=== PATIENT | male | born 1950 | race Hispanic/Latino ===

== ENCOUNTER 2019-06-02 15:31 | Emergency (ER) | payer OTHER ==
--- NOTE | 2019-06-02 16:11 | RAD REPORT ---
EXAM DESCRIPTION: RAD - Chest Single View - 06/02/2019 4:04 pm CLINICAL HISTORY: wound infection Chest pain. COMPARISON: Chest Pa And Lat (2 Views) dated 10/28/2017; Chest Single View dated 10/28/2017 FINDINGS: Portable technique limits examination quality. The lungs are grossly clear. The heart is normal in size. No displaced fractures. IMPRESSION: No acute intrathoracic process suspected.
[2019-06-02] MEDS ORDERED: NA CHLORIDE 0.9% 2,000 ML ONE (16:23)
[2019-06-02 16:32] LABS: Absolute Lymphocytes (CBC) 0.8 K/uL (0.7-4.9); Basophils % 0.5 % (0-1.3); Hematocrit 46.6 % (39.6-49.0); Lymphocytes % 6.4 % (15.3-44.8); MPV 8.3 fL (7.6-11.3); RBC Red Blood Cell Count 5.25 M/uL (4.33-5.43)
[2019-06-02 16:36] LABS: Protime INR 1.13
--- NOTE | 2019-06-02 16:59 | RAD REPORT ---
EXAM DESCRIPTION: RAD - Foot Right 3 View - 06/02/2019 4:39 pm CLINICAL HISTORY: ecchymosis;Swelling COMPARISON: FOOT W OBLIQUES dated 02/28/2010; FOOT AP LAT dated 01/01/2010; Tib Fib Right dated 06/02/20 19 FINDINGS: Right tibia/fibula and right foot- multiple projections are submitted No fracture or dislocation evident. No radiographic finding of osteomyelitis. Prominent posterior and plantar calcaneal spurs evident.
[2019-06-02 17:00] LABS: ALT/SGPT 27 U/L (12-78); AST/SGOT 24 U/L (15-37); Albumin 3.8 g/dL (3.4-5.0); Alkaline Phosphatase 92 U/L (45-117); BUN Blood Urea Nitrogen 13 mg/dL (7-18); Bicarbonate 25 mmol/L (21-32); Bilirubin Direct 0.3 mg/dL (0-0.2); CKMB Creatine Kinase MB < 1.0 ng/mL (0.3-3.6); Creatine Phosphokinase 163 U/L (39-308); Glucose Level 110 mg/dL (74-106); Lipase 64 U/L (73-393); Potassium 3.7 mmol/L (3.5-5.1); Protein, Total 7.4 g/dL (6.4-8.2); Sodium Level 139 mmol/L (136-145); Troponin (Emerg Dept Use Only) < 0.02 ng/mL (0.0-0.045)
--- NOTE | 2019-06-02 17:02 | RAD REPORT ---
EXAM DESCRIPTION: US - Extremity Venous Uni Ltd - 06/02/2019 4:57 pm CLINICAL HISTORY: Swelling;Smash injury Leg swelling and edema. COMPARISON: No comparisons FINDINGS: Right lower extremity venous system was interrogated with Doppler technique. Normal flow, compressibility and augmentation was noted. There is no DVT present. IMPRESSION: No evidence of right lower extremity deep venous thrombosis.
--- NOTE | 2019-06-02 18:07 | ER ---
Nurse's Notes [facility] Name: Keith Lemos Age: 68 yrs Sex: Male : 1950 Arrival Date: 06/02/2019 Time: 15:33 Bed 20 Private MD: Diagnosis: Ecchymosis of lower right extremity post fall;Edema of right lower extremity Presentation: 06/02 15:37 Presenting complaint: Patient states: Sent by [place] for evaluation of gangrene to toes. Patient was seen on 05/25 for R leg pain and discoloration after driving to [place], but was told he did not have a DVT. Patient began running a fever last night and has worsening of discoloration to affected toes. Transition of care: patient was not received from another setting of care. Onset of symptoms was May 25, 2019. Risk Assessment: Do you want to hurt yourself or someone else? Patient reports no desire to harm self or others. Initial Sepsis Screen: Does the patient meet any 2 criteria? HR > 90 bpm. Does the patient have a suspected source of infection? Yes: Skin breakdown/wound. Care prior to arrival: None. 15:37 Method Of Arrival: Ambulatory ss 15:37 Acuity: DARSHAN 2 Triage Assessment: 15:45 General: Appears in no apparent distress. comfortable, ill, Behavior is calm, bp cooperative, appropriate for age. Pain: Complains of pain in right leg. EENT: No deficits noted. Neuro: No deficits noted. Cardiovascular: No deficits noted. Respiratory: No deficits noted. GI: No signs and/or symptoms were reported involving the gastrointestinal system. : No signs and/or symptoms were reported regarding the genitourinary system. Derm: Skin is dusky, R FOOT. Musculoskeletal: No deficits noted. Historical: - Allergies: 15:42 PENICILLINS; ss - PMHx: 15:42 CHF; Diabetes - IDDM; Hyperlipidemia; Hypertension; ss - PSHx: 15:42 Cholecystectomy; ss - Immunization history:: Adult Immunizations up to date. - Social history:: Smoking status: Patient/guardian denies using tobacco. - Ebola Screening: : Patient denies exposure to infectious person Patient denies travel to an Ebola-affected area in the 21 days before illness onset. Screenin:47 Abuse screen: Denies threats or abuse. Denies injuries from another. Nutritional bp screening: No deficits noted. Tuberculosis screening: No symptoms or risk factors identified. Fall Risk None identified. Assessment: 15:47 General: SEE TRIAGE NOTE. bp 17:00 Reassessment: B/S U/S COMPLETED, RESULTS PENDING. bp 18:45 Reassessment: PT D/C HOME AMBULATORY WITH FAMILY, DX WITH RLE ECCHYMOSIS AND EDEMA. bp Vital Signs: 15:42 BP 152 / 71; Pulse 107; Resp 20; Temp 99.7(O); Pulse Ox 93% on R/A; Weight 101.15 kg; ss Height 5 ft. 5 in. (165.10 cm); Pain 7/10; 17:00 BP 112 / 48; Pulse 87; Resp 15; Pulse Ox 95% ; bp 18:46 BP 110 / 51; Pulse 69; Resp 17; Temp 99.5; Pulse Ox 95% ; bp 15:42 Body Mass Index 37.11 (101.15 kg, 165.10 cm) ss ED Course: 15:33 Patient arrived in ED. as 15:42 Triage completed. ss 15:42 Arm band placed on right wrist. ss 15:44 Jody Bourne FNP-C is PHCP. snw 15:44 Kong Franco MD is Attending Physician. snw 15:44 Terry Robertson, REAGAN is Primary Nurse. bp 15:47 Patient has correct armband on for positive identification. Bed in low position. Call bp light in reach. Side rails up X2. Adult w/ patient. 16:04 X-ray completed. Portable x-ray completed in exam room. Patient tolerated procedure mh1 well. 16:10 Inserted saline lock: 20 gauge in right forearm, using aseptic technique. Blood bp collected. 16:11 Chest Single View XRAY In Process Unspecified. EDMS 16:42 Tib Fib Right XRAY In Process Unspecified. EDMS 16:42 Foot Right 3 View XRAY In Process Unspecified. EDMS 16:59 US Extremity Venous Unilateral Ltd In Process Unspecified. EDMS 18:45 No provider procedures requiring assistance completed. IV discontinued, intact, bp bleeding controlled, No redness/swelling at site. Pressure dressing applied. Ortho shoe applied to right foot. Administered Medications: 16:00 Drug: NS 0.9% (30 ml/kg) 30 ml/kg Route: IV; Rate: bolus; Site: right forearm; bp 18:48 Follow up: IV Status: Completed infusion; IV Intake: 3000ml bp Intake: 18:48 IV: 3000ml; Total: 3000ml. bp Outcome: 18:01 Discharge ordered by . keerthi 18:45 Discharged to home ambulatory, with family. bp 18:45 Condition: stable 18:45 Discharge instructions given to patient, Instructed on discharge instructions, follow up and referral plans. medication usage, Demonstrated understanding of instructions, follow-up care, medications, Prescriptions given X 1. 18:48 Patient left the ED. bp Signatures: Dispatcher [employer] EDMS Jody Bourne, WEBBING WEAVER-C WEBBING WEAVER-Csnw Renita Fong [facility] Bia Rwoley Shelby, REAGAN RN ss Terry Robertson RN RN bp
--- NOTE | 2019-06-02 18:08 | EDPHYS ---
Physician Documentation [facility] Name: Keith Lemos Age: 68 yrs Sex: Male : 1950 Arrival Date: 06/02/2019 Time: 15:33 Bed 20 Private MD: ED Physician Kong Franco HPI: 06/02 16:30 This 68 yrs old Male presents to ER via Ambulatory with complaints of Gangrene snw Toes, Knee Pain. 16:30 The patient presents with pain, that is acute, swelling. The complaints affect the snw right knee. 16:32 Context: The problem was sustained at home, resulted from pt had driven home from [facility]. Pt fell and hurt knee on Friday pm. [facility] and leg was [facility]ed and DVT study was performed with negative results. Right foot and toes more discolored today and pt was sent for evaluation. Onset: The symptoms/episode began/occurred gradually. Associated signs and symptoms: Pertinent positives: knee pain and low grade fever today. Severity of symptoms: At their worst the symptoms were mild. It is unknown whether or not the patient has had similar symptoms in the past. as noted. Historical: - Allergies: 15:42 PENICILLINS; ss - PMHx: 15:42 CHF; Diabetes - IDDM; Hyperlipidemia; Hypertension; ss - PSHx: 15:42 Cholecystectomy; ss - Immunization history:: Adult Immunizations up to date. - Social history:: Smoking status: Patient/guardian denies using tobacco. - Ebola Screening: : Patient denies exposure to infectious person Patient denies travel to an Ebola-affected area in the 21 days before illness onset. ROS: 16:18 Constitutional: Negative for fever, chills, and weight loss, Eyes: Negative for injury, snw pain, redness, and discharge, ENT: Negative for injury, pain, and discharge, Neck: Negative for injury, pain, and swelling, Cardiovascular: Negative for chest pain, palpitations, and edema, Respiratory: Negative for shortness of breath, cough, wheezing, and pleuritic chest pain, Abdomen/GI: Negative for abdominal pain, nausea, vomiting, diarrhea, and constipation, Back: Negative for injury and pain, : Negative for injury, bleeding, discharge, and swelling, Skin: Negative for injury, rash, and discoloration, Neuro: Negative for headache, weakness, numbness, tingling, and seizure. 16:18 MS/extremity: Positive for injury or acute deformity, sent by [place] clinic to [facility] for gangrene. Exam: 16:17 Constitutional: This is a well developed, well nourished patient who is awake, alert, snw and in no acute distress. Head/Face: Normocephalic, atraumatic. Eyes: Pupils equal round and reactive to light, extra-ocular motions intact. Lids and lashes normal. Conjunctiva and sclera are non-icteric and not injected. Cornea within normal limits. Periorbital areas with no swelling, redness, or edema. ENT: Nares patent. No nasal discharge, no septal abnormalities noted. Tympanic membranes are normal and external auditory canals are clear. Oropharynx with no redness, swelling, or masses, exudates, or evidence of obstruction, uvula midline. Mucous membranes moist. Neck: Trachea midline, no thyromegaly or masses palpated, and no cervical lymphadenopathy. Supple, full range of motion without nuchal rigidity, or vertebral point tenderness. No Meningismus. Chest/axilla: Normal chest wall appearance and motion. Nontender with no deformity. No lesions are appreciated. Cardiovascular: Regular rate and rhythm with a normal S1 and S2. No gallops, murmurs, or rubs. Normal PMI, no JVD. No pulse deficits. Respiratory: Lungs have equal breath sounds bilaterally, clear to auscultation and percussion. No rales, rhonchi or wheezes noted. No increased work of breathing, no retractions or nasal flaring. Abdomen/GI: Soft, non-tender, with normal bowel sounds. No distension or tympany. No guarding or rebound. No evidence of tenderness throughout. Back: No spinal tenderness. No costovertebral tenderness. Full range of motion. Neuro: Awake and alert, GCS 15, oriented to person, place, time, and situation. Cranial nerves II-XII grossly intact. Motor strength 5/5 in all extremities. Sensory grossly intact. Cerebellar exam normal. Normal gait. Psych: Awake, alert, with orientation to person, place and time. Behavior, mood, and affect are within normal limits. 16:17 Skin: Appearance: normal except for affected area, injury, contusion(s), that are deep, of the lateral aspect of right foot and medial aspect of right foot. Vital Signs: 15:42 BP 152 / 71; Pulse 107; Resp 20; Temp 99.7(O); Pulse Ox 93% on R/A; Weight 101.15 kg; ss Height 5 ft. 5 in. (165.10 cm); Pain 7/10; 17:00 BP 112 / 48; Pulse 87; Resp 15; Pulse Ox 95% ; bp 18:46 BP 110 / 51; Pulse 69; Resp 17; Temp 99.5; Pulse Ox 95% ; bp 15:42 Body Mass Index 37.11 (101.15 kg, 165.10 cm) ss MDM: 15:49 Patient medically screened. snw 18:07 Data reviewed: vital signs, nurses notes. Data interpreted: Pulse oximetry: on room air snw is 95 %. Interpretation: acceptable. Counseling: I had a detailed discussion with the patient and/or guardian regarding: the historical points, exam findings, and any diagnostic results supporting the discharge/admit diagnosis, lab results, radiology results, the need for outpatient follow up, to return to the emergency department if symptoms worsen or persist or if there are any questions or concerns that arise at home. Special discussion: Based on the history and exam findings, there is no indication for further emergent testing or inpatient evaluation. I discussed with the patient/guardian the need to see the orthopedic surgeon for further evaluation of the symptoms. I discussed with the patient/guardian the need to see the primary care provider for further evaluation of the symptoms. 06/02 15:47 Order name: T\T\S; Complete Time: 17:02 snw 06/02 15:47 Order name: C-Reactive Protein; Complete Time: 17:23 snw 06/02 15:47 Order name: Basic Metabolic Panel; Complete Time: 17:23 snw 06/02 15:47 Order name: Blood Culture Adult (2) snw 06/02 15:47 Order name: CBC with Diff; Complete Time: 16:36 snw 06/02 15:47 Order name: Ckmb; Complete Time: 17:23 snw 06/02 15:47 Order name: CPK; Complete Time: 17:23 snw 06/02 15:47 Order name: Lactate; Complete Time: 16:52 snw 06/02 15:47 Order name: LFT's; Complete Time: 17:23 snw 06/02 15:47 Order name: Lipase; Complete Time: 17:23 snw 06/02 15:47 Order name: Procalcitonin; Complete Time: 17:23 snw 06/02 15:47 Order name: Protime (+inr); Complete Time: 16:43 snw 06/02 15:47 Order name: Ptt, Activated; Complete Time: 16:43 snw 06/02 15:47 Order name: Troponin (emerg Dept Use Only); Complete Time: 17:23 snw 06/02 15:47 Order name: Chest Single View XRAY; Complete Time: 16:28 snw 06/02 15:47 Order name: Accucheck; Complete Time: 16:15 snw 06/02 15:47 Order name: Cardiac monitoring; Complete Time: 15:59 snw 06/02 15:47 Order name: EKG - Nurse/Tech; Complete Time: 16:15 snw 06/02 15:47 Order name: IV Saline Lock - Large Bore; Complete Time: 16:16 snw 06/02 15:47 Order name: Labs collected and sent; Complete Time: 16:16 snw 06/02 15:47 Order name: O2 Per Protocol; Complete Time: 15:59 snw 06/02 15:47 Order name: O2 Sat Monitoring; Complete Time: 15:59 snw 06/02 16:08 Order name: Tib Fib Right XRAY snw 06/02 16:08 Order name: Foot Right 3 View XRAY; Complete Time: 17:03 snw 06/02 16:08 Order name: US Extremity Venous Unilateral Ltd; Complete Time: 17:12 snw 06/02 17:41 Order name: EKG Electrocardiogram; Complete Time: 17:45 EDMS 06/02 17:59 Order name: Walking boot; Complete Time: 18:47 snw Administered Medications: 16:00 Drug: NS 0.9% (30 ml/kg) 30 ml/kg Route: IV; Rate: bolus; Site: right forearm; bp 18:48 Follow up: IV Status: Completed infusion; IV Intake: 3000ml bp Disposition: 06/02/19 18:01 Discharged to Home. Impression: Ecchymosis of lower right extremity post fall, Edema of right lower extremity. - Condition is Stable. - Discharge Instructions: Muscle Strain, Walking Boot, Peripheral Edema. - Prescriptions for Ultram 50 mg Oral Tablet - take 1 tablet by ORAL route every 6 hours As needed; 12 tablet. - Medication Reconciliation Form, Thank You Letter, Antibiotic Education, Prescription Opioid Use, Family Work Release form. - Follow up: Private Physician; When: 1 - 2 days; Reason: Recheck today's complaints, Continuance of care, Re-evaluation by your physician. Follow up: Emergency Department; When: As needed; Reason: Worsening of condition. Addendum: 06/07/2019 09:43 Co-signature as Attending Physician, Kong Franco MD I agree with the assessment and k dr plan of care. Signatures: Dispatcher [employer] EDMS Kong Franco MD MD [facility] Jody Bourne, AEROTRIANGULATION SPECIALIST-C AEROTRIANGULATION SPECIALIST-Csnw Jhoana Foreman, REAGAN RN ss Terry Robertson RN RN bp Corrections: (The following items were deleted from the chart) 06/02 18:48 18:01 06/02/2019 18:01 Discharged to Home. Impression: Ecchymosis of lower right bp extremity post fall; Edema of right lower extremity. Condition is Stable. Forms are Medication Reconciliation Form, Thank You Letter, Antibiotic Education, Prescription Opioid Use. Follow up: Private Physician; When: 1 - 2 days; Reason: Recheck today's complaints, Continuance of care, Re-evaluation by your physician. Follow up: Emergency Department; When: As needed; Reason: Worsening of condition. snw
[2019-06-02 20:41] VITALS: O2SAT 95
[2019-06-02 20:43] VITALS: BP 110/51; TEMP 99.5
--- NOTE | 2019-06-03 11:10 | EKG ---
Test Date: 2019-06-02 Test Time: 16:10:33 Mill Attendant: SÁNCHEZ MEASUREMENT RESULTS: Intervals: Rate: 99 OK: 152 QRSD: 90 QT: 358 QTc: 459 [place]: P: 57 OK: 152 QRS: 240 T: 46 INTERPRETIVE STATEMENTS: Normal sinus rhythm Right superior axis deviation Inferior infarct, age undetermined Abnormal ECG Compared to ECG 10/28/2017 16:01:17 Right superior axis now present Ventricular premature complex(es) no longer present Left-axis deviation no longer present Myocardial infarct finding still present Electronically Signed On 06-03-19 11:06:28 CDT by Luis Valle
--- NOTE | 2019-06-04 11:07 | RAD REPORT ---
EXAM DESCRIPTION: RAD - Tib Fib Right - 06/02/2019 4:39 pm CLINICAL HISTORY: Ecchymosis;Swelling COMPARISON: FOOT W OBLIQUES dated 02/28/2010; FOOT AP LAT dated 01/01/2010; Tib Fib Right dated 06/02/20 19 FINDINGS: Right tibia/fibula and right foot- multiple projections are submitted No fracture or dislocation evident. No radiographic finding of osteomyelitis. Prominent posterior and plantar calcaneal spurs evident.
== END 2019-06-02 18:48 | disposition home or self-care (01) ==
LOC: ER 15:31
DX: S80.11XA Contusion of right lower leg, initial encounter (principal); R60.0 Localized edema; W19.XXXA Unspecified fall, initial encounter; Y93.89 Activity, other specified; Y92.009 Unspecified place in unspecified non-institutional (private) residence as the place of occurrence of the external cause; Z88.0 Allergy status to penicillin; I10 Essential (primary) hypertension
CPT/HCPCS: 96361; 93005; 87040 ×2; 85025; 80048; 36415; 86900; 86850; 82550; 85610; 86901; 80076; 83605; 85730; 84484; 82553; 83690; 84145; 86140; 71045; 73630; 73590; 93971; 96360; 99284; J7030; 96365; 96366

== ENCOUNTER 2022-09-08 11:26 | Emergency (ER) | payer OTHER ==
--- OUTSIDE RECORDS SUMMARY | 2022-09-08 11:29 | XMS REPORT | Continuity of Care Document ---
:1950 Author Organization [facility] t Address [address] [place] [address] [address]. [address] [place] [address] Care Team Providers Name Role Phone Unavailable Unavailable Unavailable Problems This patient has no known problems. Allergies, Adverse Reactions, Alerts This patient has no known allergies or adverse reactions. Medications This patient has no known medications. Procedures This patient has no known procedures. Results This patient has no known results.
[2022-09-08 11:53] LABS: Urine Blood 2+ (Negative); Urine Glucose Trace (Negative); Urine Protein Negative (Negative); Urine pH 5.5 (5.0-7.0)
--- NOTE | 2022-09-08 13:03 | EDPHYS ---
Physician Documentation [facility] Name: Keith Lemos Age: 71 yrs Sex: Male : 1950 Arrival Date: 09/08/2022 Time: 11:29 Bed 20 Private MD: ED Physician Julio Gan HPI: 09/08 11:40 This 71 yrs old Male presents to ER via Ambulatory with complaints of Urinary jmm Retention. 11:40 Onset: The symptoms/episode began/occurred gradually, last night. Modifying factors: jmm The symptoms are alleviated by nothing, the symptoms are aggravated by nothing. This is a 71 year old male with a history of chf, dm, hlp, htn that presents to the ED with complaints of difficulty urinating. Patient has not been able to urinate since last night. Denies fever, abdominal pain, vomiting. . Historical: - Allergies: 11:38 PENICILLINS; ll1 - PMHx: 11:38 CHF; Diabetes - IDDM; Hyperlipidemia; Hypertension; ll1 - PSHx: 11:38 Cholecystectomy; ll1 - Immunization history:: Client reports receiving the 2nd dose of the Covid vaccine. - Social history:: Smoking status: Patient denies any tobacco usage or history of. ROS: 11:40 Constitutional: Negative for fever, chills, and weight loss, Eyes: Negative for injury, jmm pain, redness, and discharge, ENT: Negative for injury, pain, and discharge, Neck: Negative for injury, pain, and swelling, Cardiovascular: Negative for chest pain, palpitations, and edema, Respiratory: Negative for shortness of breath, cough, wheezing, and pleuritic chest pain, Abdomen/GI: Negative for abdominal pain, nausea, vomiting, diarrhea, and constipation, Back: Negative for injury and pain, MS/Extremity: Negative for injury and deformity, Skin: Negative for injury, rash, and discoloration, Neuro: Negative for headache, weakness, numbness, tingling, and seizure, Psych: Negative for depression, anxiety, suicide ideation, homicidal ideation, and hallucinations. 11:40 All other systems are negative. Exam: 11:40 Constitutional: This is a well developed, well nourished patient who is awake, alert, jmm and in no acute distress. Head/Face: atraumatic. Eyes: EOMI, no conjunctival erythema appreciated ENT: Moist Mucus Membranes Neck: Trachea midline, Supple Chest/axilla: Normal chest wall appearance and motion. Cardiovascular: Regular rate and rhythm. No edema appreciated Respiratory: Normal respirations, no respiratory distress appreciated Abdomen/GI: Non distended Back: Normal ROM Skin: General appearance color normal MS/ Extremity: Moves all extremities, no obvious deformities appreciated, no edema noted to the lower extremities Neuro: Awake and alert Psych: Behavior is normal, Mood is normal, Patient is cooperative and pleasant Vital Signs: 11:38 BP 182 / 91; Pulse 67; Resp 20; Temp 97.9; Pulse Ox 96% ; Weight 96.16 kg; Height 5 ft. ll1 5 in. (165.10 cm); Pain 10/10; 11:45 Resp 18; Pain 6/10; ll1 12:00 BP 165 / 56; Pulse 66; Resp 17; ll1 13:00 BP 145 / 62; Pulse 65; Resp 18; Pulse Ox 99% ; kb3 11:38 Body Mass Index 35.28 (96.16 kg, 165.10 cm) ll1 MDM: 11:40 Patient medically screened. [facility] 13:01 Data reviewed: vital signs, nurses notes. Counseling: I had a detailed discussion with ernesto the patient and/or guardian regarding: the historical points, exam findings, and any diagnostic results supporting the discharge/admit diagnosis, lab results, the need for outpatient follow up, to return to the emergency department if symptoms worsen or persist or if there are any questions or concerns that arise at home. 09/08 11:53 Order name: Urine Dipstick-Ancillary; Complete Time: 11:56 EDMS Administered Medications: No medications were administered Disposition Summary: 09/08/22 13:02 Discharge Ordered Location: Home [facility] Condition: Stable baljeet Diagnosis - Urinary Retention [facility] Followup: baljeet - With: Ambrocio Garcia MD - When: 2 - 3 days - Reason: Recheck today's complaints, Continuance of care, Re-evaluation by your physician Discharge Instructions: - Discharge Summary Sheet [facility] - Acute Urinary Retention, Male [facility] Forms: - Medication Reconciliation Form [facility] - Thank You Letter baljeet - Antibiotic Education baljeet - Prescription Opioid Use baljeet Signatures: Dany Rockwell PA PA jmm Lewis, Lynsay RN RN ll1
--- NOTE | 2022-09-08 13:03 | ER ---
Nurse's Notes [facility] Name: Keith Lemos Age: 71 yrs Sex: Male : 1950 Arrival Date: 09/08/2022 Time: 11:29 Bed 20 Private MD: Diagnosis: Urinary Retention Presentation: 09/08 11:38 Chief complaint: Patient states: Cant urinate since 5 am. Coronavirus screen: Vaccine ll1 status: Patient reports receiving the 2nd dose of the covid vaccine. Client denies travel out of the [place] in the last 14 days. At this time, the client does not indicate any symptoms associated with coronavirus-19. Ebola Screen: Patient denies travel to an Ebola-affected area in the 21 days before illness onset. Initial Sepsis Screen: Does the patient meet any 2 criteria? No. Patient's initial sepsis screen is negative. Does the patient have a suspected source of infection? Yes: Dysuria/Frequency/Urgency/UTI. Risk Assessment: Do you want to hurt yourself or someone else? Patient reports no desire to harm self or others. Onset of symptoms was September 08, 2022. 11:38 Method Of Arrival: Ambulatory ll1 11:38 Acuity: DARSHAN 2 ll1 Triage Assessment: 11:40 General: Appears uncomfortable, Behavior is cooperative, appropriate for age, restless. ll1 Pain: Complains of pain in pelvis Pain currently is 10 out of 10 on a pain scale. Quality of pain is described as pressure, throbbing, Pain began 5 am. Neuro: No deficits noted. Cardiovascular: No deficits noted. : Reports burning with urination, inability to void, since 5 AM pain in bilateral lower quadrant(s) with urination. Historical: - Allergies: 11:38 PENICILLINS; ll1 - PMHx: 11:38 CHF; Diabetes - IDDM; Hyperlipidemia; Hypertension; ll1 - PSHx: 11:38 Cholecystectomy; ll1 - Immunization history:: Client reports receiving the 2nd dose of the Covid vaccine. - Social history:: Smoking status: Patient denies any tobacco usage or history of. Screenin:54 [facility] ED Fall Risk Assessment (Adult) Altered Elimination Yes (1 pt) Score/Fall Risk ll1 Level 0 - 2 = Low Risk Oriented to surroundings, Maintained a safe environment, Educated pt \T\ family on fall prevention, incl call for assistance when getting out of bed, Hourly rounding (assess needs \T\ fall precautionary measures) done. Abuse screen: Denies threats or abuse. Nutritional screening: No deficits noted. Tuberculosis screening: No symptoms or risk factors identified. Assessment: 12:00 Reassessment: No changes from previously documented assessment. Patient and/or family ll1 updated on plan of care and expected duration. Pain level reassessed. Patient is alert, oriented x 3, equal unlabored respirations, skin warm/dry/pink. 13:12 General: Urinary catheter remains in place, bag replaced with leg bag for discharge. kb3 Education provided regarding care of catheter. Vital Signs: 11:38 BP 182 / 91; Pulse 67; Resp 20; Temp 97.9; Pulse Ox 96% ; Weight 96.16 kg; Height 5 ft. ll1 5 in. (165.10 cm); Pain 10/10; 11:45 Resp 18; Pain 6/10; ll1 12:00 BP 165 / 56; Pulse 66; Resp 17; ll1 13:00 BP 145 / 62; Pulse 65; Resp 18; Pulse Ox 99% ; kb3 11:38 Body Mass Index 35.28 (96.16 kg, 165.10 cm) ll1 ED Course: 11:29 Patient arrived in ED. as 11:30 Arm band placed on Patient placed in an exam room, on a stretcher. 1 11:38 Jin Whitney RN is Primary Nurse. 1 11:38 Dany Rockwell PA is PHCP. [facility] 11:38 Julio Gan MD is Attending Physician. [facility] 11:39 Triage completed. 1 11:40 Notified Nurse Practitioner and/or Physician Insole Bottom Filler of patient needs denis KIM. ll1 Given verbal order to do so. 11:42 Denis cath inserted, using sterile technique, 16 Fr., by co, balloon inflated, to ll1 gravity drainage, clamped. urine specimen collected. 12:01 Patient has correct armband on for positive identification. Bed in low position. Call ll1 light in reach. Side rails up X 1. Client placed on continuous cardiac and pulse oximetry monitoring. NIBP monitoring applied. 13:01 Ambrocio Garcia MD is Referral Physician. [facility] 13:02 Primary Nurse role handed off by Jin Whitney RN eb 13:12 Niya Curry, RN is Primary Nurse. kb3 13:12 No provider procedures requiring assistance completed. Patient did not have IV access kb3 during this emergency room visit. Administered Medications: No medications were administered Medication: 12:01 VIS not applicable for this client. ll1 Output: 12:00 Urine: 800ml (Denis); Total: 800ml. ll1 Outcome: 13:02 Discharge ordered by MD. orozco 13:17 Discharged to home ambulatory, with family. kb3 13:17 Condition: stable 13:17 Discharge instructions given to patient, family, Instructed on discharge instructions, follow up and referral plans. medication usage, urinary catheter care Demonstrated understanding of instructions, follow-up care, medications. 13:18 Patient left the ED. kb3 Signatures: Dany Rockwell PA PA jmm Martinez, Amelia as Botello, Elizabeth eb Lewis, Lynsay, RN RN ll1 Niya Curry, RN RN kb3
[2022-09-08 13:23] VITALS: TEMP 97.9
[2022-09-08 13:26] VITALS: BP 145/62; O2SAT 99
== END 2022-09-08 13:18 | disposition home or self-care (01) ==
LOC: ER 11:26
DX: R33.9 Retention of urine, unspecified (principal); I10 Essential (primary) hypertension; Z88.0 Allergy status to penicillin
CPT/HCPCS: 51702; 81003; 99284

== ENCOUNTER 2022-09-12 18:55 | Emergency (ER) | payer OTHER ==
--- OUTSIDE RECORDS SUMMARY | 2022-09-12 18:58 | XMS REPORT | Continuity of Care Document ---
:1950 Author Organization [facility] t Address [address] [place] [address] [address] [place] [address] Care Team Providers Name Role Phone Unavailable Unavailable Unavailable Problems This patient has no known problems. Allergies, Adverse Reactions, Alerts This patient has no known allergies or adverse reactions. Medications This patient has no known medications. Procedures This patient has no known procedures. Results This patient has no known results.
[2022-09-12 22:45] LABS: Urine Blood 3+ (Negative); Urine Glucose Negative (Negative); Urine Protein 1+ (Negative); Urine Specific Gravity 1.015 (1.005-1.030)
[2022-09-12 23:14] LABS: Urine Bacteria <20 /HPF (<20); Urine Mucus Slight /HPF (None Seen); Urine RBC >50 /HPF (None Seen)
--- NOTE | 2022-09-12 23:16 | ER ---
Nurse's Notes [facility] Name: Keith Lemos Age: 71 yrs Sex: Male : 1950 Arrival Date: 09/12/2022 Time: 18:58 Bed 12 Private MD: Diagnosis: Leakage of urinary (indwelling) catheter;Urinary retention Presentation: 09/12 19:05 Chief complaint: Denis catheter inserted 4 days ago, reports leaking urine from penis hb started last night. Coronavirus screen: At this time, the client does not indicate any symptoms associated with coronavirus-19. Ebola Screen: No symptoms or risks identified at this time. Risk Assessment: Do you want to hurt yourself or someone else? Patient reports no desire to harm self or others. Onset of symptoms was September 12, 2022. 19:05 Method Of Arrival: Ambulatory hb 19:05 Acuity: DARSHAN 3 hb 23:44 Initial Sepsis Screen: Does the patient meet any 2 criteria? No. Patient's initial pf1 sepsis screen is negative. Does the patient have a suspected source of infection? No. Patient's initial sepsis screen is negative. Historical: - Allergies: 19:06 PENICILLINS; hb - PMHx: 19:06 CHF; Diabetes - IDDM; Hyperlipidemia; Hypertension; hb - PSHx: 19:06 Cholecystectomy; hb - Immunization history:: Adult Immunizations unknown. - Social history:: Smoking status: Patient/guardian denies using. Screenin:32 [facility] ED Fall Risk Assessment (Adult) History of falling in the last 3 months, pf1 including since admission No falls in past 3 months (0 pts) Confusion or Disorientation No (0 pts) Intoxicated or Sedated No (0 pts) Impaired Gait No (0 pts) Mobility Assist Device Used No (0 pt) Altered Elimination No (0 pt) Score/Fall Risk Level 0 - 2 = Low Risk Oriented to surroundings, Maintained a safe environment, Educated pt \T\ family on fall prevention, incl call for assistance when getting out of bed, Assessed \T\ reinforced patient's understanding of fall precautions, Provided non-skid footwear, Hourly rounding (assess needs \T\ fall precautionary measures) done, Used ambulatory aids as needed (educated on \T\ assisted with), Used gait belt as appropriate. Abuse screen: Denies threats or abuse. Nutritional screening: No deficits noted. Tuberculosis screening: No symptoms or risk factors identified. Assessment: 19:20 General: Appears in no apparent distress. comfortable, well groomed, well developed, pf1 Behavior is calm, cooperative, appropriate for age, quiet. 19:20 Pain: Complains of pain in Patient C/O tip of the penis pain of 2, due to irritation pf1 from denis. Pain currently is 2 out of 10 on a pain scale. Neuro: No deficits noted. Level of Consciousness is awake, alert, obeys commands, Oriented to person, place, time, situation. Cardiovascular: No deficits noted. Respiratory: No deficits noted. Airway is patent Respiratory effort is even, unlabored, Respiratory pattern is regular, symmetrical. GI: No deficits noted. No signs and/or symptoms were reported involving the gastrointestinal system. Abdomen is round non-distended, Bowel sounds present X 4 quads. Abd is soft and non tender X 4 quads. : Reports Patient C/O urinating around denis catheter,onset today, Patient stated denis catheter was inserted here on Friday. Patient stated followed up with [facility] on Friday and awaiting for an appointment with Urology from [place]. EENT: No deficits noted. No signs and/or symptoms were reported regarding the EENT system. 20:40 General: Patient drinking water at this time to attempt to urinate. pf1 22:00 General: Patient had a total of 237ml of urine per bladder scan. pf1 22:41 General: Patient urine output of 380 with urinal. pf1 23:24 Reassessment: Patient appears in no apparent distress at this time. Patient and/or hb family updated on plan of care and expected duration. Pain level reassessed. Patient is alert, oriented x 3, equal unlabored respirations, skin warm/dry/pink. Vital Signs: 19:05 BP 145 / 57; Pulse 69; Resp 16; Temp 98.3; Pulse Ox 100% on R/A; Weight 97.52 kg; hb Height 5 ft. 5 in. (165.10 cm); Pain 1/10; 19:40 BP 151 / 65; Pulse 65; Resp 18; Temp 97.9; Pulse Ox 96% on R/A; Pain 2/10; pf1 21:30 BP 144 / 54; Pulse 69; Resp 18; Pulse Ox 100% ; Pain 2/10; pf1 22:30 BP 151 / 58; Pulse 70; Resp 16; Temp 98; Pulse Ox 99% ; Pain 2/10; pf1 23:24 BP 146 / 76; Pulse 64; Resp 16; Pulse Ox 99% on R/A; hb 19:05 Body Mass Index 35.78 (97.52 kg, 165.10 cm) hb ED Course: 18:58 Patient arrived in ED. jj6 19:06 Triage completed. hb 19:06 Arm band placed on. hb 19:07 Mireya Akbar MD is Attending Physician. sd2 19:27 Zonia cobb RN is Primary Nurse. pf1 19:30 Patient has correct armband on for positive identification. Placed in gown. Bed in low pf1 position. Call light in reach. 19:33 No provider procedures requiring assistance completed. pf1 19:42 Patient has a 16 macedonian denis catheter placed TREE SAPPER that was inserted here on Friday due pf1 to urinary retention. 20:10 Denis cath removed intact, balloon deflated, Patient tolerated well. pf1 23:06 Urine Microscopic Only Sent. pf1 23:15 Ambrocio Garcia MD is Referral Physician. sd2 23:44 Patient did not have IV access during this emergency room visit. pf1 Administered Medications: No medications were administered Medication: 19:30 VIS not applicable for this client. pf1 Intake: 20:30 PO: 1260ml (Water); Total: 1260ml. pf1 23:24 PO: 0ml; Total: 1260ml. hb Output: 19:40 Urine: 50ml (Voided); Total: 50ml. pf1 20:30 Urine: 480ml (Voided); Total: 530ml. pf1 23:24 Urine: 300ml (Voided); Total: 830ml. hb Outcome: 23:16 Discharge ordered by . sd2 23:25 Discharged to home ambulatory. hb 23:25 Condition: stable 23:25 Discharge instructions given to patient, significant other, Instructed on discharge instructions, follow up and referral plans. medication usage, Demonstrated understanding of instructions, follow-up care, medications. 23:25 Patient left the ED. hb Signatures: Myrtle Mcintosh RN RN Ally Knapp jj6 Mireya Akbar MD MD sd2 Zonia cobb RN RN pf1 Corrections: (The following items were deleted from the chart) 19:07 19:05 Acuity: DARSHAN 4 hb hb
--- NOTE | 2022-09-12 23:17 | EDPHYS ---
Physician Documentation [facility] Name: Keith Lemos Age: 71 yrs Sex: Male : 1950 Arrival Date: 09/12/2022 Time: 18:58 Bed 12 Private MD: ED Physician Mireya Akbar HPI: 09/12 19:54 This 71 yrs old Male presents to ER via Ambulatory with complaints of Problem sd2 With Urinary Catheter. 19:54 71 yo M presents with CC of problem with urinary catheter. States Terrazas was placed on 2 Friday due to urinary retention and was not having any issues until today when he started urinating out of his urethra around the catheter instead of into the bag. Denies any fever, abdominal pain or vomiting. Has not yet scheduled a follow up appointment with Urology.. Historical: - Allergies: 19:06 PENICILLINS; hb - PMHx: 19:06 CHF; Diabetes - IDDM; Hyperlipidemia; Hypertension; hb - PSHx: 19:06 Cholecystectomy; hb - Immunization history:: Adult Immunizations unknown. - Social history:: Smoking status: Patient/guardian denies using. ROS: 19:54 Constitutional: Negative for fever, chills, and weight loss, Eyes: Negative for injury, sd2 pain, redness, and discharge, Cardiovascular: Negative for chest pain, palpitations, and edema, Respiratory: Negative for shortness of breath, cough, wheezing. Abdomen/GI: Negative for abdominal pain, nausea, vomiting, diarrhea. : Negative for dysuria, frequency or hematuria. Positive for Terrazas catheter malfunction. MS/Extremity: Negative for injury and deformity, Skin: Negative for injury, rash, and discoloration. Exam: 19:54 Constitutional: This is a well developed, well nourished patient who is awake, alert, sd2 and in no acute distress. Head/Face: Normocephalic, atraumatic. Abdomen/GI: Soft, non-tender, with normal bowel sounds. No guarding or rebound. No evidence of tenderness throughout. Male : Normal genitalia with no discharge or lesions. No scrotal swelling or edema. Terrazas catheter in place with dark yellow urine in tubing and bag but no active drainage appreciated. Skin: Warm, dry with normal turgor. Normal color with no rashes, no lesions, and no evidence of cellulitis. Psych: Awake, alert, with orientation to person, place and time. Behavior, mood, and affect are within normal limits. Vital Signs: 19:05 BP 145 / 57; Pulse 69; Resp 16; Temp 98.3; Pulse Ox 100% on R/A; Weight 97.52 kg; hb Height 5 ft. 5 in. (165.10 cm); Pain 1/10; 19:40 BP 151 / 65; Pulse 65; Resp 18; Temp 97.9; Pulse Ox 96% on R/A; Pain 2/10; pf1 21:30 BP 144 / 54; Pulse 69; Resp 18; Pulse Ox 100% ; Pain 2/10; pf1 22:30 BP 151 / 58; Pulse 70; Resp 16; Temp 98; Pulse Ox 99% ; Pain 2/10; pf1 23:24 BP 146 / 76; Pulse 64; Resp 16; Pulse Ox 99% on R/A; hb 19:05 Body Mass Index 35.78 (97.52 kg, 165.10 cm) hb MDM: 19:50 Patient medically screened. sd2 19:54 Differential Diagnosis catheter malfunction, urinary retention, UTI among others. Data sd2 reviewed: vital signs, nurses notes, old medical records. 22:39 ED course: Pt was able to fully void on his own at this time. Will leave Terrazas catheter sd2 out and patient to follow up outpatient with urology. Pending urine dip to rule out infection at this time. . 23:14 Counseling: I had a detailed discussion with the patient and/or guardian regarding: the sd2 historical points, exam findings, and any diagnostic results supporting the discharge/admit diagnosis, lab results, the need for outpatient follow up, to return to the emergency department if symptoms worsen or persist or if there are any questions or concerns that arise at home. ED course: UA not consistent with infection at this time. Pt fully voided and emptied bladder. Will plan for discharge with urology follow up. Verbalizes understanding of discharge plan and strict return precautions. . 09/12 22:45 Order name: Urine Dipstick-Ancillary; Complete Time: 22:48 EDMS 09/12 22:48 Order name: Urine Microscopic Only; Complete Time: 23:14 sd2 09/12 22:39 Order name: Urine Dipstick-Ancillary (obtain specimen); Complete Time: 23:03 sd2 Administered Medications: No medications were administered Disposition Summary: 09/12/22 23:16 Discharge Ordered Location: Home sd2 Problem: new sd2 Symptoms: have improved sd2 Condition: Stable sd2 Diagnosis - Leakage of urinary (indwelling) catheter sd2 - Urinary retention sd2 Followup: sd2 - With: Ambrocio Garcia MD - When: 2 - 3 days - Reason: Recheck today's complaints, Continuance of care, Re-evaluation by your physician Discharge Instructions: - Discharge Summary Sheet sd2 - Acute Urinary Retention, Male sd2 Forms: - Medication Reconciliation Form sd2 - Thank You Letter sd2 - Antibiotic Education sd2 - Work release form hb - Prescription Opioid Use sd2 Signatures: Dispatcher [employer] Myrtle Donohue, RN Mireya Herrera MD MD sd2 Zonia cobb RN RN pf1
[2022-09-12 23:31] VITALS: TEMP 97.9
[2022-09-12 23:32] VITALS: BP 146/76; O2SAT 99
== END 2022-09-12 23:25 | disposition home or self-care (01) ==
LOC: ER 18:55
DX: T83.038A Leakage of other urinary catheter, initial encounter (principal); R33.9 Retention of urine, unspecified; Z88.0 Allergy status to penicillin
CPT/HCPCS: 81003; 81015; 99283

== ENCOUNTER 2022-09-13 02:27 | Emergency (ER) | payer OTHER ==
--- OUTSIDE RECORDS SUMMARY | 2022-09-13 02:30 | XMS REPORT | Continuity of Care Document ---
:1950 Author Organization [facility] t Address [address] [place] [address] Care Team Providers Name Role Phone Unavailable Unavailable Unavailable Problems This patient has no known problems. Allergies, Adverse Reactions, Alerts This patient has no known allergies or adverse reactions. Medications This patient has no known medications. Procedures This patient has no known procedures. Results This patient has no known results.
--- NOTE | 2022-09-13 04:18 | ER ---
Nurse's Notes [facility] Name: Keith Lemos Age: 71 yrs Sex: Male : 1950 Arrival Date: 09/13/2022 Time: 02:29 Bed 8 Private MD: Diagnosis: Acute urinary retention Presentation: 09/13 02:37 Chief complaint: Patient states: I woke up and I tried to urinate but I could not ha1 ueinate. Coronavirus screen:. Ebola Screen: No symptoms or risks identified at this time. Initial Sepsis Screen: Does the patient meet any 2 criteria? No. Patient's initial sepsis screen is negative. Does the patient have a suspected source of infection? No. Patient's initial sepsis screen is negative. Risk Assessment: Do you want to hurt yourself or someone else? Patient reports no desire to harm self or others. Onset of symptoms was September 13, 2022. 02:37 Method Of Arrival: Ambulatory ha1 02:37 Acuity: DARSHAN 3 ha1 Triage Assessment: 02:35 General: Appears uncomfortable, Behavior is calm, cooperative. Pain: Complains of pain ha1 in lower abdomen Pain does not radiate. Pain currently is 9 out of 10 on a pain scale. EENT: No signs and/or symptoms were reported regarding the EENT system. Neuro: Level of Consciousness is awake, alert, obeys commands, Oriented to person, place, time, situation. Cardiovascular: Patient's skin is warm and dry. Respiratory: Airway is patent Trachea midline Respiratory effort is even, unlabored, Respiratory pattern is regular, symmetrical. GI: No signs and/or symptoms were reported involving the gastrointestinal system. GI: Abdomen is non-distended, obese. : Reports inability to void. Musculoskeletal: Circulation, motion, and sensation intact. Range of motion: intact in all extremities. Historical: - Allergies: 02:40 PENICILLINS; ha1 - PMHx: 02:40 CHF; Diabetes - IDDM; Hyperlipidemia; Hypertension; ha1 - PSHx: 02:40 Cholecystectomy; ha1 - Immunization history:: Adult Immunizations unknown. - Social history:: Smoking status: unknown. Screenin:45 Abuse screen: Denies threats or abuse. Denies injuries from another. Nutritional ha1 screening: No deficits noted. Tuberculosis screening: No symptoms or risk factors identified. Assessment: 02:35 General: see triage assessment . ha1 03:12 General: Patient insists "This is the exact same pain that I had on Friday when I tw5 filled up two bottles after having a cath in. I need you to relieve this pain.". 04:12 Reassessment: Patient and/or family updated on plan of care and expected duration. Pain ha1 level reassessed. Patient is alert, oriented x 3, equal unlabored respirations, skin warm/dry/pink. Vital Signs: 02:37 BP 201 / 89; Pulse 65; Resp 19 S; Pulse Ox 100% on R/A; Weight 97.52 kg; Height 5 ft. 5 ha1 in. (165.10 cm); 03:28 BP 185 / 75; Pulse 65; Resp 20 S; Pulse Ox 100% on R/A; ha1 04:15 BP 139 / 70; Pulse 62; Resp 18 S; Pulse Ox 100% on R/A; ha1 02:37 Body Mass Index 35.78 (97.52 kg, 165.10 cm) ha1 ED Course: 02:29 Patient arrived in ED. ja2 02:35 Patient has correct armband on for positive identification. Placed in gown. Bed in low ha1 position. Call light in reach. Side rails up X 1. Adult w/ patient. 02:37 Rosalia Hummel, RN is Primary Nurse. ha1 02:40 Triage completed. ha1 02:45 Arm band placed on right wrist. ha1 03:29 Terrazas cath inserted, using sterile technique, 18 Fr., by ak, balloon inflated, to ha1 gravity drainage, returned clear yellow urine. Patient tolerated well. 800 mL of urine collected in the bag. 03:52 Mireya Akbar MD is Attending Physician. sd2 04:15 Ambrocio Garcia MD is Referral Physician. sd2 04:59 No provider procedures requiring assistance completed. Patient did not have IV access ha1 during this emergency room visit. Administered Medications: No medications were administered Medication: 05:00 VIS not applicable for this client. ha1 Outcome: 04:17 Discharge ordered by . sd2 04:59 Discharged to home ambulatory. ha1 04:59 Condition: stable 04:59 Discharge instructions given to patient, family, Instructed on discharge instructions, follow up and referral plans. Demonstrated understanding of instructions, follow-up care. 05:00 Patient left the ED. ha1 Signatures: Cely Campos Tiffany tw5 Mireya Akbar MD MD sd2 Rosalia Hummel RN RN ha1 Corrections: (The following items were deleted from the chart) 03:30 03:12 General: Bladder Scanner reported 0 ml in bladder. Patient insists "This is the tw5 exact same pain that I had on Friday when I filled up two bottles after having a cath in. I need you to relieve this pain.". tw5
--- NOTE | 2022-09-13 04:18 | EDPHYS ---
Physician Documentation [facility] Name: Keith Lemos Age: 71 yrs Sex: Male : 1950 Arrival Date: 09/13/2022 Time: 02:29 Bed 8 Private MD: ED Physician Mireya Akbar HPI: 09/13 04:12 This 71 yrs old Male presents to ER via Ambulatory with complaints of Urinary sd2 Retention. 04:12 71 yo M presents with CC of urinary retention. Pt seen earlier in the night in ED by sd2 myself with Terrazas catheter issue that was placed Friday due to urinary retention. Catheter was removed and pt was able to void on his own in the ER and therefore, decision was made to leave catheter out. pt has been unable to void since then and returns to have catheter replaced. . Historical: - Allergies: 02:40 PENICILLINS; ha1 - PMHx: 02:40 CHF; Diabetes - IDDM; Hyperlipidemia; Hypertension; ha1 - PSHx: 02:40 Cholecystectomy; ha1 - Immunization history:: Adult Immunizations unknown. - Social history:: Smoking status: unknown. ROS: 04:12 Constitutional: Negative for fever, chills, and weight loss, Eyes: Negative for injury, sd2 pain, redness, and discharge, Cardiovascular: Negative for chest pain, palpitations, and edema, Respiratory: Negative for shortness of breath, cough, wheezing. Abdomen/GI: Negative for abdominal pain, nausea, vomiting, diarrhea. : Negative for dysuria, frequency or hematuria. Positive for retention MS/Extremity: Negative for injury and deformity, Skin: Negative for injury, rash, and discoloration, Neuro: Negative for headache, numbness and tingling. Exam: 04:12 Constitutional: This is a well developed, well nourished patient who is awake, alert, sd2 and in no acute distress. Head/Face: Normocephalic, atraumatic. Eyes: EOMI, normal conjunctiva bilaterally Chest/axilla: Normal chest wall appearance and motion. Nontender with no deformity. Cardiovascular: Regular rate and rhythm with a normal S1 and S2. No gallops, murmurs, or rubs. 2+ distal pulses. Respiratory: Lungs have equal breath sounds bilaterally, clear to auscultation and percussion. No rales, rhonchi or wheezes noted. No increased work of breathing, no retractions or nasal flaring. Abdomen/GI: Soft, non-tender, with normal bowel sounds. No guarding or rebound. No evidence of tenderness throughout. Skin: Warm, dry with normal turgor. Normal color with no rashes, no lesions, and no evidence of cellulitis. MS/ Extremity: Pulses equal, no cyanosis. Neurovascular intact. Full, normal range of motion. Ambulatory without difficulty. Psych: Awake, alert, with orientation to person, place and time. Behavior, mood, and affect are within normal limits. Vital Signs: 02:37 BP 201 / 89; Pulse 65; Resp 19 S; Pulse Ox 100% on R/A; Weight 97.52 kg; Height 5 ft. 5 ha1 in. (165.10 cm); 03:28 BP 185 / 75; Pulse 65; Resp 20 S; Pulse Ox 100% on R/A; ha1 04:15 BP 139 / 70; Pulse 62; Resp 18 S; Pulse Ox 100% on R/A; ha1 02:37 Body Mass Index 35.78 (97.52 kg, 165.10 cm) ha1 MDM: 03:52 Patient medically screened. sd2 04:12 Differential Diagnosis urinary retention, UTI, BPH among others. Data reviewed: vital sd2 signs, nurses notes, old medical records. Counseling: I had a detailed discussion with the patient and/or guardian regarding: the historical points, exam findings, and any diagnostic results supporting the discharge/admit diagnosis, the need for outpatient follow up, to return to the emergency department if symptoms worsen or persist or if there are any questions or concerns that arise at home. Medical screen evaluation completed. [facility] emergency medical condition absent. ED course: Terrazas catheter replaced with 700 mL output. Urine checked earlier this evening without clear evidence of UTI and culture pending. Pt feeling improved. Will leave catheter in place and pt to follow up outpatient with Urology. Verbalizes understanding of discharge plan and strict return precautions. . 09/13 04:57 Order name: Mk; Complete Time: 04:57 ha1 Administered Medications: No medications were administered Disposition Summary: 09/13/22 04:17 Discharge Ordered Location: Home sd2 Problem: an ongoing problem sd2 Symptoms: have improved sd2 Condition: Stable sd2 Diagnosis - Acute urinary retention sd2 Followup: sd2 - With: Ambrocio Garcia MD - When: 2 - 3 days - Reason: Recheck today's complaints, Continuance of care Discharge Instructions: - Discharge Summary Sheet sd2 - Acute Urinary Retention, Male sd2 - Indwelling Urinary Catheter Insertion, Care After sd2 Forms: - Medication Reconciliation Form sd2 - Thank You Letter sd2 - Antibiotic Education sd2 - Prescription Opioid Use sd2 Signatures: Mireya Akbar MD MD sd2 Rosalia Hummel, RN RN ha1
[2022-09-13 05:06] VITALS: O2SAT 100
[2022-09-13 05:09] VITALS: BP 139/70
== END 2022-09-13 05:00 | disposition home or self-care (01) ==
LOC: ER 02:27
DX: R33.9 Retention of urine, unspecified (principal); Z88.0 Allergy status to penicillin
CPT/HCPCS: 51702; 99284

== ENCOUNTER 2022-09-13 17:02 | Emergency (ER) | payer OTHER ==
--- OUTSIDE RECORDS SUMMARY | 2022-09-13 18:00 | XMS REPORT | Continuity of Care Document ---
:1950 Author Organization [facility] t Address [address] [place] [address] Care Team Providers Name Role Phone Unavailable Unavailable Unavailable Problems This patient has no known problems. Allergies, Adverse Reactions, Alerts This patient has no known allergies or adverse reactions. Medications This patient has no known medications. Procedures This patient has no known procedures. Results This patient has no known results.
--- NOTE | 2022-09-13 18:12 | ER ---
Nurse's Notes [facility] Name: Keith Lemos Age: 71 yrs Sex: Male : 1950 Arrival Date: 09/13/2022 Time: 17:04 Bed 5 Private MD: Diagnosis: Denis Catheter Attention Presentation: 09/13 17:21 Chief complaint: Recently seen in ED for urinary retention, denis placed and referred hb to urology, c/o leaking around catheter. Pt reports feeling the urge to push and urinate and notices leaking around catheter when he pushes. Coronavirus screen: At this time, the client does not indicate any symptoms associated with coronavirus-19. Ebola Screen: No symptoms or risks identified at this time. Initial Sepsis Screen: Does the patient meet any 2 criteria? No. Patient's initial sepsis screen is negative. Does the patient have a suspected source of infection? No. Patient's initial sepsis screen is negative. Risk Assessment: Do you want to hurt yourself or someone else? Patient reports no desire to harm self or others. Onset of symptoms was September 13, 2022. 17:21 Method Of Arrival: Ambulatory hb 17:21 Acuity: DARSHAN 4 hb Historical: - Allergies: 17:23 PENICILLINS; hb - PMHx: 17:23 CHF; Diabetes - IDDM; Hyperlipidemia; Hypertension; hb - PSHx: 17:23 Cholecystectomy; hb Screenin:50 [facility] ED Fall Risk Assessment (Adult) History of falling in the last 3 months, vg1 including since admission No falls in past 3 months (0 pts) Confusion or Disorientation No (0 pts) Intoxicated or Sedated No (0 pts) Impaired Gait No (0 pts) Mobility Assist Device Used No (0 pt) Altered Elimination No (0 pt) Score/Fall Risk Level 0 - 2 = Low Risk Oriented to surroundings, Maintained a safe environment, Educated pt \\T\\ family on fall prevention, incl call for assistance when getting out of bed, Assessed \\T\\ reinforced patient's understanding of fall precautions. Abuse screen: Denies threats or abuse. Nutritional screening: No deficits noted. Tuberculosis screening: No symptoms or risk factors identified. Assessment: 17:50 General: Appears in no apparent distress. comfortable, Behavior is calm, cooperative. vg1 Pain: Denies pain. Neuro: Level of Consciousness is awake, alert, obeys commands, Oriented to person, place, time, situation. Cardiovascular: Patient's skin is warm and dry. Respiratory: Airway is patent Respiratory effort is even, unlabored. GI: No signs and/or symptoms were reported involving the gastrointestinal system. : Reports Discomfort at urethral meatus; states leakage when pushing; stated "i feel pressure like i have to pee and I push and see that pee comes out" educated pt to try let the denis drain bladder without forcing urine out. pt refused to replace denis, stated will try and not push when feeling pressure in bladder. EENT: No signs and/or symptoms were reported regarding the EENT system. Derm: Skin is pink, warm \\T\\ dry. Musculoskeletal: Circulation, motion, and sensation intact. 18:24 Reassessment: Patient appears in no apparent distress at this time. Patient is alert, ld1 oriented x 3, equal unlabored respirations, skin warm/dry/pink. Patient denies pain at this time. Vital Signs: 17:21 BP 180 / 85; Pulse 81; Resp 16; Temp 98.3; Pulse Ox 99% on R/A; Weight 97.52 kg; Height hb 5 ft. 5 in. (165.10 cm); Pain 2/10; 18:24 BP 176 / 84; Pulse 82; Resp 18; Pulse Ox 99% on R/A; ld1 17:21 Body Mass Index 35.78 (97.52 kg, 165.10 cm) hb ED Course: 17:04 Patient arrived in ED. mr 17:13 Dany Rockwell PA is PHCP. jmm 17:13 Jacob Mcdermott DO is Attending Physician. jmm 17:17 Arm band placed on Patient placed in an exam room, on a stretcher. ll1 17:23 Triage completed. hb 17:26 Katharina Min, RN is Primary Nurse. vg1 17:50 Patient has correct armband on for positive identification. Bed in low position. Call vg1 light in reach. Side rails up X 1. Adult w/ patient. 17:50 No provider procedures requiring assistance completed. Patient did not have IV access vg1 during this emergency room visit. Administered Medications: No medications were administered Medication: 17:50 VIS not applicable for this client. vg1 Outcome: 18:12 Discharge ordered by MD. orozco 18:24 Discharged to home ambulatory, with family. ld1 18:24 Condition: stable 18:24 Discharge instructions given to patient, Instructed on discharge instructions, follow up and referral plans. Demonstrated understanding of instructions, follow-up care. 18:25 Patient left the ED. ld1 Signatures: Dany Rockwell PA PA jmm Guicho Jackie mr McintoshMyrtle, RN RN Katharina Gibbons RN REAGAN 1 Jin Whitney RN RN 1 Alejandra Daniels RN RN ld1
--- NOTE | 2022-09-13 18:12 | EDPHYS ---
Physician Documentation [facility] Name: Keith Lemos Age: 71 yrs Sex: Male : 1950 Arrival Date: 09/13/2022 Time: 17:04 Bed 5 Private MD: ED Physician Jacob Mcdermott HPI: 09/13 18:41 Is a 71-year-old male with history of CHF, diabetes mellitus, hyperlipidemia, jmm hypertension the presents emerged department with complaints of a dysfunctional Terrazas catheter. Patient states when he bears down to urinate urine will go out the sides of his catheter. Patient does still have urinary output into the bag. Patient has come to the ED multiple times due to Terrazas catheter issues. Denies any fever, abdominal pain.. Historical: - Allergies: 17:23 PENICILLINS; hb - PMHx: 17:23 CHF; Diabetes - IDDM; Hyperlipidemia; Hypertension; hb - PSHx: 17:23 Cholecystectomy; hb ROS: 18:41 Constitutional: Negative for fever, chills, and weight loss, Cardiovascular: Negative jmm for chest pain, palpitations, and edema, Respiratory: Negative for shortness of breath, cough, wheezing, and pleuritic chest pain. 18:41 All other systems are negative. Exam: 18:41 Constitutional: This is a well developed, well nourished patient who is awake, alert, jmm and in no acute distress. Head/Face: atraumatic. Eyes: EOMI, no conjunctival erythema appreciated ENT: Moist Mucus Membranes Neck: Trachea midline, Supple Chest/axilla: Normal chest wall appearance and motion. Cardiovascular: Regular rate and rhythm. No edema appreciated Respiratory: Normal respirations, no respiratory distress appreciated Abdomen/GI: Non distended Back: Normal ROM Skin: General appearance color normal MS/ Extremity: Moves all extremities, no obvious deformities appreciated, no edema noted to the lower extremities Neuro: Awake and alert Psych: Behavior is normal, Mood is normal, Patient is cooperative and pleasant Vital Signs: 17:21 BP 180 / 85; Pulse 81; Resp 16; Temp 98.3; Pulse Ox 99% on R/A; Weight 97.52 kg; Height hb 5 ft. 5 in. (165.10 cm); Pain 2/10; 18:24 BP 176 / 84; Pulse 82; Resp 18; Pulse Ox 99% on R/A; ld1 17:21 Body Mass Index 35.78 (97.52 kg, 165.10 cm) [facility]: 17:20 Patient medically screened. [facility] 18:10 Data reviewed: vital signs, nurses notes. Counseling: I had a detailed discussion with ernesto the patient and/or guardian regarding: the historical points, exam findings, and any diagnostic results supporting the discharge/admit diagnosis, the need for outpatient follow up, to return to the emergency department if symptoms worsen or persist or if there are any questions or concerns that arise at home. 18:42 ED course: RN checks Terrazas catheter and ensure it is working correctly. Patient was [facility] educated and advised not to bear down and attempt to urinate and to let the catheter performed its function. Otherwise advised follow with urology for further evaluation. Patient otherwise given strict return precautions. Patient understood and agrees plan of care. . Administered Medications: No medications were administered Disposition Summary: 09/13/22 18:12 Discharge Ordered Location: Home [facility] Condition: Stable [facility] Diagnosis - Terrazas Catheter Attention [facility] Followup: [facility] - With: Private Physician - When: 2 - 3 days - Reason: Recheck today's complaints, Continuance of care, Re-evaluation by your physician Discharge Instructions: - Discharge Summary Sheet [facility] - Indwelling Urinary Catheter Care, Adult [facility] Forms: - Medication Reconciliation Form [facility] - Thank You Letter [facility] - Antibiotic Education [facility] - Prescription Opioid Use [facility] Addendum: 09/17/2022 14:12 Co-signature as Attending Physician, Jacob Mcdermott DO I was immediately available on-site m s3 in the Emergency Department for consultation in the care of the patient.. Signatures: Dany Rockwell PA PA jmm Baxter, Heather, RN RN Jacob Garcia DO DO ms3 Corrections: (The following items were deleted from the chart) 09/13 17:56 17:33 Terrazas ordered. [facility] vg1
[2022-09-13 18:34] VITALS: TEMP 98.3; O2SAT 99
[2022-09-13 18:35] VITALS: BP 176/84
== END 2022-09-13 18:25 | disposition home or self-care (01) ==
LOC: ER 17:02
DX: Z46.6 Encounter for fitting and adjustment of urinary device (principal)
CPT/HCPCS: 99281

== ENCOUNTER 2022-10-07 18:37 | Emergency (ER) | payer OTHER ==
--- OUTSIDE RECORDS SUMMARY | 2022-10-07 18:40 | XMS REPORT | Continuity of Care Document ---
:1950 Author Organization [facility] t Address [address] [place] [address] Care Team Providers Name Role Phone [facility] KHAN Attending Clinician Unavailable ALETA DUNN Admitting Clinician Unavailable Problems This patient has no known problems. Allergies, Adverse Reactions, Alerts This patient has no known allergies or adverse reactions. Medications This patient has no known medications. Procedures This patient has no known procedures. Encounters Start End Encounter Admission Attending Care Care Encounter Source Date/Time Date/Time Type Type Clinicians Facility Department ID 2022-09-28 2022-09-28 Emergency E [facility]F KHAN [id number] 10:39:00 15:24:00 [facility] Results This patient has no known results.
[2022-10-07 19:33] LABS: Urine Blood 3+ (Negative); Urine Glucose Negative (Negative); Urine Protein Negative (Negative); Urine Specific Gravity <=1.005 (1.005-1.030)
[2022-10-07 20:23] LABS: Urine Bacteria None Seen /HPF (<20); Urine WBC Clump Rare /HPF (None Seen)
--- NOTE | 2022-10-07 20:32 | EDPHYS ---
Physician Documentation [facility] Name: Keith Lemos Age: 72 yrs Sex: Male : 1950 Arrival Date: 10/07/2022 Time: 18:40 Bed 15 Private MD: ED Physician Dayne Giron HPI: 10/07 19:20 This 72 yrs old Male presents to ER via Ambulatory with complaints of Urinary cp Retention. 19:20 The patient presents with urinary symptoms, retention. Onset: The symptoms/episode cp began/occurred today. 19:20 Associated signs and symptoms: Pertinent positives: abdominal pain, Pertinent cp negatives: constipation, diarrhea, fever, vomiting. Severity of symptoms: in the emergency department the symptoms are unchanged, despite home interventions. 19:20 Patient reports primary urologist removed previous denis today while at appointment. cp Historical: - Allergies: 18:47 PENICILLINS; jh5 - PMHx: 18:47 CHF; Diabetes - IDDM; Hyperlipidemia; Hypertension; 5 - PSHx: 18:47 Cholecystectomy; 5 - Immunization history:: Adult Immunizations up to date. - Social history:: Smoking status: Patient denies any tobacco usage or history of. ROS: 19:25 Constitutional: Negative for body aches, chills, fever, poor PO intake. cp 19:25 Cardiovascular: Negative for chest pain, edema, palpitations. cp 19:25 Respiratory: Negative for cough, shortness of breath, wheezing. 19:25 Abdomen/GI: Positive for abdominal pain, Negative for vomiting, diarrhea, constipation. 19:25 Back: Negative for injury or acute deformity, decreased range of motion. 19:25 : Positive for difficulty urinating, Negative for hematuria, burning with urination, testicular pain 19:25 Skin: Negative for cellulitis, rash. 19:25 Neuro: Negative for altered mental status, dizziness, headache, weakness. 19:25 All other systems are negative. Exam: 19:30 Constitutional: The patient appears in no acute distress, alert, awake, cp non-diaphoretic, non-toxic, well developed, well nourished, in obvious pain, uncomfortable. 19:30 Head/Face: Normocephalic, atraumatic. cp 19:30 Eyes: Periorbital structures: appear normal, Conjunctiva: normal, no exudate, no injection, Sclera: no appreciated abnormality, Lids and lashes: appear normal, bilaterally. 19:30 ENT: External ear(s): are unremarkable, Nose: is normal, Mouth: Lips: moist, Oral mucosa: moist, Posterior pharynx: Airway: no evidence of obstruction, patent. 19:30 Chest/axilla: Inspection: normal. 19:30 Cardiovascular: Rate: normal, Rhythm: regular. 19:30 Respiratory: the patient does not display signs of respiratory distress, Respirations: normal, no use of accessory muscles, no retractions, labored breathing, is not present, Breath sounds: are clear throughout, no decreased breath sounds, no stridor, no wheezing. 19:30 Abdomen/GI: Inspection: distension, that is moderate, in the lower abdomen, Bowel sounds: active, all quadrants, Palpation: soft, in all quadrants, severe abdominal tenderness, in the right lower quadrant and left lower quadrant, rebound tenderness, is not appreciated, voluntary guarding, is elicited in the right lower quadrant and left lower quadrant. 19:30 Back: CVA tenderness, is absent. 19:30 Neuro: Orientation: to person, place \T\ time. Mentation: is normal, Motor: moves all fours, strength is normal, Gait: is steady. Vital Signs: 18:44 BP 162 / 84; Pulse 88; Resp 16; Temp 98.7; Pulse Ox 100% ; Weight 94.8 kg; Height 5 ft. jh5 5 in. (165.10 cm); Pain 8/10; 19:41 BP 137 / 63; Pulse 66; Resp 19 S; Pulse Ox 98% on R/A; as6 20:35 BP 128 / 57; Pulse 67; Resp 18 S; Pulse Ox 97% on R/A; as6 18:44 Body Mass Index 34.78 (94.80 kg, 165.10 cm) jh5 MDM: 18:51 Patient medically screened. cp 19:00 Differential diagnosis: UTI, urinary retention, Denis catheter problem, prostatitis, cp urethritis. 19:35 Data reviewed: vital signs, nurses notes, lab test result(s). cp 19:35 Response to treatment: the patient's symptoms have resolved after treatment, Pain cp resolved after placement of denis by nurse. 20:30 Consideration of Admission/Observation Escalation of care including cp admission/observation considered. Test considered but Not performed: Other Details CT abdomen/pelvis. Counseling: I had a detailed discussion with the patient and/or guardian regarding: the historical points, exam findings, and any diagnostic results supporting the discharge/admit diagnosis, lab results, the need for outpatient follow up, a urologist, to return to the emergency department if symptoms worsen or persist or if there are any questions or concerns that arise at home. 10/07 19:15 Order name: Urine Microscopic Only; Complete Time: 20:26 10/07 19:33 Order name: Urine Dipstick-Ancillary; Complete Time: 19:35 EDKS 10/07 19:35 Interpretation: Normal except: UBLD 3+; UESTR 2+. 10/07 19:15 Order name: Denis; Complete Time: 19:38 10/07 19:15 Order name: Urine Dipstick-Ancillary (obtain specimen); Complete Time: 19:38 cp 10/07 19:15 Order name: Bladder Scanner: pre and post void; Complete Time: 19:38 10/07 20:26 Order name: Urine Culture [facility] 10/07 19:59 Order name: Leg Bag; Complete Time: 20:36 cp Administered Medications: No medications were administered Disposition Summary: 10/07/22 20:32 Discharge Ordered Location: Home cp Problem: an ongoing problem cp Symptoms: have improved cp Condition: Stable cp Diagnosis - Retention of urine, unspecified cp Followup: cp - With: Private Physician - When: 2 - 3 days - Reason: Recheck today's complaints Discharge Instructions: - Discharge Summary Sheet cp - Acute Urinary Retention, Male cp Forms: - Medication Reconciliation Form cp - Thank You Letter cp - Antibiotic Education cp - Prescription Opioid Use cp Signatures: Dispatcher [employer] [facility] Rafael Santos PA PA cp Cely Tai RN RN jh5 Corrections: (The following items were deleted from the chart) 10/08 20:50 10/07 19:35 Consideration of Admission/Observation Escalation of care including cp admission/observation considered. cp 10/08 20:50 10/07 19:35 Test considered but Not performed: Other Details CT abdomen/pelvis. cp 10/08 20:50 10/07 19:35 Counseling: I had a detailed discussion with the patient and/or guardian cp regarding: the historical points, exam findings, and any diagnostic results supporting the discharge/admit diagnosis, lab results, the need for outpatient follow up, a urologist, to return to the emergency department if symptoms worsen or persist or if there are any questions or concerns that arise at home, cp
--- NOTE | 2022-10-07 20:32 | ER ---
Nurse's Notes [facility] Name: Keith Lemos Age: 72 yrs Sex: Male : 1950 Arrival Date: 10/07/2022 Time: 18:40 Bed 15 Private MD: Diagnosis: Retention of urine, unspecified Presentation: 10/07 18:44 Chief complaint: Patient states: "I have been here 4-5 times since Sep 07 for this [facility] same issue, I have had catheter placed twice and removed and I have followed up with Dr. AMAYA and he didn't do shit and I am in a ot of pain, I cant pee and I want relief". Coronavirus screen: Vaccine status: Patient reports receiving the 2nd dose of the covid vaccine. Client denies travel out of the [place] in the last 14 days. Ebola Screen: Patient negative for fever greater than or equal to 101.5 degrees Fahrenheit, and additional compatible Ebola Virus Disease symptoms Patient denies exposure to infectious person. Patient denies travel to an Ebola-affected area in the 21 days before illness onset. Initial Sepsis Screen: Does the patient meet any 2 criteria? No. Patient's initial sepsis screen is negative. Does the patient have a suspected source of infection? No. Patient's initial sepsis screen is negative. Risk Assessment: Do you want to hurt yourself or someone else? Patient reports no desire to harm self or others. Onset of symptoms was September 07, 2022. 18:44 Method Of Arrival: Ambulatory [facility] 18:44 Acuity: DARSHAN 3 5 Triage Assessment: 18:47 General: Appears uncomfortable, well groomed, well developed, Behavior is calm, jh5 cooperative, appropriate for age, agitated. Pain: Complains of pain in abdomen. Historical: - Allergies: 18:47 PENICILLINS; 5 - PMHx: 18:47 CHF; Diabetes - IDDM; Hyperlipidemia; Hypertension; jh5 - PSHx: 18:47 Cholecystectomy; jh5 - Immunization history:: Adult Immunizations up to date. - Social history:: Smoking status: Patient denies any tobacco usage or history of. Screenin:35 [facility] ED Fall Risk Assessment (Adult) Score/Fall Risk Level 0 - 2 = Low Risk. Abuse as6 screen: Denies threats or abuse. Denies injuries from another. Nutritional screening: No deficits noted. Tuberculosis screening: No symptoms or risk factors identified. Assessment: 19:20 General: Appears uncomfortable, Behavior is cooperative, restless. Pain: Complains of as6 pain in suprapubic area. Neuro: Level of Consciousness is awake, alert, obeys commands, Oriented to person, place, time, situation. Cardiovascular: Capillary refill < 3 seconds Patient's skin is warm and dry. Respiratory: Respiratory effort is even, unlabored, Respiratory pattern is regular, symmetrical. GI: Abdomen is distended. : Bladder is distended Reports inability to void, pain in suprapubic area. Vital Signs: 18:44 BP 162 / 84; Pulse 88; Resp 16; Temp 98.7; Pulse Ox 100% ; Weight 94.8 kg; Height 5 ft. jh5 5 in. (165.10 cm); Pain 8/10; 19:41 BP 137 / 63; Pulse 66; Resp 19 S; Pulse Ox 98% on R/A; as6 20:35 BP 128 / 57; Pulse 67; Resp 18 S; Pulse Ox 97% on R/A; as6 18:44 Body Mass Index 34.78 (94.80 kg, 165.10 cm) 5 ED Course: 18:40 Patient arrived in ED. am2 18:47 Triage completed. 5 18:47 Arm band placed on right wrist. 5 18:50 Rafael Santos PA is PHCP. cp 18:50 Dayne Giron MD is Attending Physician. cp 19:13 Antoine Harrison, REAGAN is Primary Nurse. as6 19:25 Terrazas cath inserted, using sterile technique, 18 Fr., by vt, balloon inflated, to as6 gravity drainage, urine specimen collected. returned clear yellow urine. Patient tolerated well. 19:35 Placed in gown. Bed in low position. Call light in reach. Side rails up X2. Pulse ox as6 on. NIBP on. 20:35 No provider procedures requiring assistance completed. Patient did not have IV access as6 during this emergency room visit. Administered Medications: No medications were administered Medication: 19:38 VIS not applicable for this client. as6 Outcome: 20:32 Discharge ordered by . cp 20:35 Discharged to home ambulatory, with significant other. as6 20:35 Condition: stable as6 20:35 Discharge instructions given to patient, Instructed on discharge instructions, follow up and referral plans. Demonstrated understanding of instructions, follow-up care. 20:52 Patient left the ED. as6 Signatures: Rafael Santos PA PA cp Moreno, Amanda am2 Rees, Jessica RN RN jh5 Antoine Harrison RN RN as6
[2022-10-07 22:23] VITALS: TEMP 98.7
[2022-10-07 22:25] VITALS: BP 128/57; O2SAT 97
== END 2022-10-07 20:52 | disposition home or self-care (01) ==
LOC: ER 18:37
DX: R33.9 Retention of urine, unspecified (principal); I10 Essential (primary) hypertension; Z88.0 Allergy status to penicillin
CPT/HCPCS: 51702; 81003; 81015; 87086; 87088; 99284